=== PATIENT | male | born 1955 | race Hispanic/Latino ===

== ENCOUNTER 2021-06-06 11:12 | Emergency (ER) | payer MEDICARE ==
[2021-06-06] MEDS ORDERED: NALOXONE 0.4 MG/1 ML INJ IV PRN (12:55)
--- NOTE | 2021-06-06 12:57 | Emergency Department Report ---
ED General Adult HPI - General Chief complaint: Altered Mental Status Stated complaint: hes an addict Time Seen by Provider: 06/06/21 12:35 Source: patient, family, EMS ( EMS documentation not available at time of chart dictation ), RN notes reviewed Mode of arrival: Stretcher Limitations: Altered Mental Status - History of Present Illness Initial comments: The patient was evaluated in the emergency department for symptoms described in the history of present illness. He/she was evaluated in the context of the global COVID-19 pandemic, which necessitated consideration that the patient might be at risk for infection with the virus that causes COVID-19. Institutional protocols and algorithms that pertain to the evaluation of patients at risk for COVID-19 are in a state of rapid change based on information released by regulatory bodies including the CDC and federal and state organizations. These policies and algorithms were followed during the patient's care in the emergency department. Please note that these policies, procedures and recommendations changed on a rapid basis. The patient is a 65-year-old gentleman. He is not known to myself previously. He is brought to the hospital by EMS with the family member. History is obtained from the patient's family member. As per the patient's family member, the patient has been affected from his current living facility, and is homeless and probably squatting. He also has a history of "drug abuse", and "basically does everything." Patient is brought to the hospital today by EMS for evaluation for presumed intoxication. The patient himself is sleepy but arousable. He moves 4 extremities. He complains of chronic bilateral knee pain. He makes no complaint of homicidality or suicidality. As per his family member who is at the bedside, they report that the patient had a closed head injury yesterday, but they are not quite sure how. They reports that the patient "does a lot of drugs". Family is interested in detox/rehabilitation for the patient Patient himself is is not making any comments about whether or not he would like to participate in detox or rehab Location: head - Related Data Previous Rx's Medication Instructions Recorded Last Taken Type Naloxone HCl [Narcan Nasal [place]] 4 mg NS PRN PRN #1 spray 06/06/21 Unknown Rx Allergies Allergy/AdvReac Type Severity Reaction Status Date / Time Penicillins Allergy Unknown Verified 06/06/21 11:15 ED Review of Systems ROS: Stated complaint: AMS Other details as noted in HPI Comment: Unobtainable due to pts medical conditions (Review of systems as per family) Constitutional: malaise Neurological: confusion ED Past Medical Hx - Surgical History Additional Surgical History: l) leg surgery/metal kevin - Social History Smoking Status: Current Some Day Smoker Substance Use Type: Alcohol - Medications Home Medications: Home Medications Medication Instructions Recorded Confirmed Last Taken Type Naloxone HCl [Narcan Nasal [place]] 4 mg NS PRN PRN #1 spray 06/06/21 Unknown Rx ED Physical Exam - General Limitations: Altered Mental Status General appearance: appears intoxicated, lethargic - Head Head exam: Present: normocephalic, other (Left supraorbital abrasion) - Eye Eye exam: Present: PERRL, EOMI. Absent: normal appearance (Pupils noted to be 2 mm. React to light.) - ENT ENT exam: Present: normal orophraynx, mucous membranes moist, normal external ear exam (Poor dentition is noted) - Neck Neck exam: Present: normal inspection, full ROM. Absent: tenderness, meningismus - Respiratory Respiratory exam: Present: decreased breath sounds. Absent: respiratory distress, wheezes, rales, rhonchi, stridor - Cardiovascular Cardiovascular Exam: Present: normal rhythm, bradycardia, normal heart sounds. Absent: tachycardia, irregular rhythm, systolic murmur, diastolic murmur, rubs, gallop - GI/Abdominal GI/Abdominal exam: Present: soft. Absent: distended, tenderness, guarding, rebound, rigid, pulsatile mass - Rectal Rectal exam: Present: deferred - Extremities Exam Extremities exam: Present: normal inspection, full ROM, pedal edema (1+ edema in the bilateral lower extremity), other (2+ pulses noted in the bilateral upper and lower extremities. There is no palpable cord. negative Homans sign. Muscular compartments are soft. The pelvis is stable.). Absent: calf tenderness - Back Exam Back exam: Present: normal inspection. Absent: tenderness, CVA tenderness (R), CVA tenderness (L), paraspinal tenderness, vertebral tenderness - Neurological Exam Neurological exam: Present: altered, other (There is no facial droop. 5/5 strength in 4 extremities. Patient is sleepy but arousable) - Psychiatric Psychiatric exam: Present: flat affect - Skin Skin exam: Present: warm, dry, intact, normal color. Absent: rash ED Course Vital Signs 06/06/21 06/06/21 06/06/21 11:13 12:41 12:56 Temperature 98 F Pulse Rate 72 Respiratory 17 Rate Blood Pressure 121/80 128/72 Blood Pressure 109/67 [Left] O2 Sat by Pulse 100 Oximetry 06/06/21 19:36 Temperature 97.9 F Pulse Rate 58 L Respiratory 17 Rate Blood Pressure Blood Pressure 135/82 [Left] O2 Sat by Pulse 97 Oximetry - Reevaluation(s) Reevaluation #1: 06/06/21 13:20 Differential diagnosis, including not limited to: Closed head injury, cervical spine injury, toxic encephalopathy, drug abuse, homelessness Assessment and plan: 65-year-old gentleman, who is afebrile, with reassuring vital signs, who moves 4 extremities spontaneously and is protecting his airway, likely presenting with toxic encephalopathy, likely secondary to polysubstance abuse. He has evidence of closed head injury. He is cooperative at this time. He does not meet criteria for 1013 hold or involuntary confinement at this time. Obtain appropriate laboratory studies, EKG, chest x-ray, urinalysis. As nerayne Gonzales. Reassess pending clinical sobriety. Family at the bedside. They are interested in detox and rehab. Patient will be provided with a list of substance abuse programs, outpatient community behavioral health resources, and homeless shelters. We will reassess after completion of the aforementioned diagnostic studies. 06/06/21 13:21 06/06/21 13:49 Care be transferred to the oncoming ER physician, Dr. German Lopez, to follow-up on labs, CT scan of the brain and cervical spine, and reassess. Anticipate that if diagnostic studies unremarkable, and patient is clinically sober and ambulatory with a steady gait, he may be discharged to follow-up as an outpatient ED Medical Decision Making - Lab Data Result diagrams: 06/06/21 13:15 06/06/21 13:15 Vital Signs 06/06/21 11:13 Temperature 98 F Pulse Rate 72 Respiratory 17 Rate Blood Pressure 109/67 [Left] O2 Sat by Pulse 100 Oximetry Vital Signs 06/06/21 06/06/21 06/06/21 11:13 12:41 12:56 Temperature 98 F Pulse Rate 72 Respiratory 17 Rate Blood Pressure 121/80 128/72 Blood Pressure 109/67 [Left] O2 Sat by Pulse 100 Oximetry 06/06/21 19:36 Temperature 97.9 F Pulse Rate 58 L Respiratory 17 Rate Blood Pressure Blood Pressure 135/82 [Left] O2 Sat by Pulse 97 Oximetry Lab Results 06/06/21 06/06/21 06/06/21 Range/Units 13:15 13:15 13:15 WBC 5.3 (4.5-11.0) K/mm3 RBC 4.68 (3.65-5.03) M/mm3 Hgb 13.9 (11.8-15.2) gm/dl Hct 41.6 (35.5-45.6) % MCV 89 (84-94) fl MCH 30 (28-32) pg MCHC 34 (32-34) % RDW 14.3 (13.2-15.2) % Plt Count 326 (140-440) K/mm3 Lymph % (Auto) 22.6 (13.4-35.0) % Benson % (Auto) 10.0 H (0.0-7.3) % Eos % (Auto) 2.4 (0.0-4.3) % Baso % (Auto) 1.4 (0.0-1.8) % Lymph # (Auto) 1.2 (1.2-5.4) K/mm3 Benson # (Auto) 0.5 (0.0-0.8) K/mm3 Eos # (Auto) 0.1 (0.0-0.4) K/mm3 Baso # (Auto) 0.1 (0.0-0.1) K/mm3 Seg Neutrophils % 63.6 (40.0-70.0) % Seg Neutrophils # 3.4 (1.8-7.7) K/mm3 PT 12.6 (12.2-14.9) Sec. INR 0.85 L (0.87-1.13) Sodium (137-145) mmol/L Potassium (3.6-5.0) mmol/L Chloride (98-107) mmol/L Carbon Dioxide (22-30) mmol/L Anion Gap mmol/L BUN (9-20) mg/dL Creatinine (0.8-1.3) mg/dL Estimated GFR ml/min BUN/Creatinine Ratio % Glucose (75-100) mg/dL Calcium (8.4-10.2) mg/dL Total Bilirubin (0.1-1.2) mg/dL AST (5-40) units/L ALT (7-56) units/L Alkaline Phosphatase (35-129) units/L Total Creatine Kinase 56 (55-170) units/L Total Protein (6.3-8.2) g/dL Albumin (3.9-5) g/dL Albumin/Globulin Ratio % Urine Color (Yellow) Urine Turbidity (Clear) Urine pH (5.0-7.0) Ur Specific [place] (1.003-1.030) Urine Protein (Negative) mg/dL Urine Glucose (UA) (Negative) mg/dL Urine Ketones (Negative) mg/dL Urine Blood (Negative) Urine Nitrite (Negative) Urine Bilirubin (Negative) Urine Urobilinogen (<2.0) mg/dL Ur Leukocyte Esterase (Negative) Urine WBC (Auto) (0.0-6.0) /HPF Urine RBC (Auto) (0.0-6.0) /HPF Urine Mucus /HPF Salicylates (2.8-20.0) mg/dL Urine Opiates Screen Urine Methadone Screen Acetaminophen (10.0-30.0) ug/mL Ur Barbiturates Screen Ur Phencyclidine Scrn Ur Amphetamines Screen U Benzodiazepines Scrn Urine Cocaine Screen U Marijuana (THC) Screen Drugs of Abuse Note Plasma/Serum Alcohol (0-0.07) % 06/06/21 06/06/21 06/06/21 Range/Units 13:15 13:15 13:15 WBC (4.5-11.0) K/mm3 RBC (3.65-5.03) M/mm3 Hgb (11.8-15.2) gm/dl Hct (35.5-45.6) % MCV (84-94) fl MCH (28-32) pg MCHC (32-34) % RDW (13.2-15.2) % Plt Count (140-440) K/mm3 Lymph % (Auto) (13.4-35.0) % Benson % (Auto) (0.0-7.3) % Eos % (Auto) (0.0-4.3) % Baso % (Auto) (0.0-1.8) % Lymph # (Auto) (1.2-5.4) K/mm3 Benson # (Auto) (0.0-0.8) K/mm3 Eos # (Auto) (0.0-0.4) K/mm3 Baso # (Auto) (0.0-0.1) K/mm3 Seg Neutrophils % (40.0-70.0) % Seg Neutrophils # (1.8-7.7) K/mm3 PT (12.2-14.9) Sec. INR (0.87-1.13) Sodium (137-145) mmol/L Potassium (3.6-5.0) mmol/L Chloride (98-107) mmol/L Carbon Dioxide (22-30) mmol/L Anion Gap mmol/L BUN (9-20) mg/dL Creatinine (0.8-1.3) mg/dL Estimated GFR ml/min BUN/Creatinine Ratio % Glucose (75-100) mg/dL Calcium (8.4-10.2) mg/dL Total Bilirubin (0.1-1.2) mg/dL AST (5-40) units/L ALT (7-56) units/L Alkaline Phosphatase (35-129) units/L Total Creatine Kinase (55-170) units/L Total Protein (6.3-8.2) g/dL Albumin (3.9-5) g/dL Albumin/Globulin Ratio % Urine Color (Yellow) Urine Turbidity (Clear) Urine pH (5.0-7.0) Ur Specific [place] (1.003-1.030) Urine Protein (Negative) mg/dL Urine Glucose (UA) (Negative) mg/dL Urine Ketones (Negative) mg/dL Urine Blood (Negative) Urine Nitrite (Negative) Urine Bilirubin (Negative) Urine Urobilinogen (<2.0) mg/dL Ur Leukocyte Esterase (Negative) Urine WBC (Auto) (0.0-6.0) /HPF Urine RBC (Auto) (0.0-6.0) /HPF Urine Mucus /HPF Salicylates < 0.3 L (2.8-20.0) mg/dL Urine Opiates Screen Urine Methadone Screen Acetaminophen 5.0 L (10.0-30.0) ug/mL Ur Barbiturates Screen Ur Phencyclidine Scrn Ur Amphetamines Screen U Benzodiazepines Scrn Urine Cocaine Screen U Marijuana (THC) Screen Drugs of Abuse Note Plasma/Serum Alcohol < 0.01 (0-0.07) % 06/06/21 06/06/21 06/06/21 Range/Units 13:15 Unknown Unknown WBC (4.5-11.0) K/mm3 RBC (3.65-5.03) M/mm3 Hgb (11.8-15.2) gm/dl Hct (35.5-45.6) % MCV (84-94) fl MCH (28-32) pg MCHC (32-34) % RDW (13.2-15.2) % Plt Count (140-440) K/mm3 Lymph % (Auto) (13.4-35.0) % Benson % (Auto) (0.0-7.3) % Eos % (Auto) (0.0-4.3) % Baso % (Auto) (0.0-1.8) % Lymph # (Auto) (1.2-5.4) K/mm3 Benson # (Auto) (0.0-0.8) K/mm3 Eos # (Auto) (0.0-0.4) K/mm3 Baso # (Auto) (0.0-0.1) K/mm3 Seg Neutrophils % (40.0-70.0) % Seg Neutrophils # (1.8-7.7) K/mm3 PT (12.2-14.9) Sec. INR (0.87-1.13) Sodium 142 (137-145) mmol/L Potassium 4.4 (3.6-5.0) mmol/L Chloride 103.3 (98-107) mmol/L Carbon Dioxide 26 (22-30) mmol/L Anion Gap 17 mmol/L BUN 20 (9-20) mg/dL Creatinine 0.9 (0.8-1.3) mg/dL Estimated GFR > 60 ml/min BUN/Creatinine Ratio 22 % Glucose 80 (75-100) mg/dL Calcium 9.3 (8.4-10.2) mg/dL Total Bilirubin 0.30 (0.1-1.2) mg/dL AST 18 (5-40) units/L ALT 16 (7-56) units/L Alkaline Phosphatase 92 (35-129) units/L Total Creatine Kinase (55-170) units/L Total Protein 7.0 (6.3-8.2) g/dL Albumin 4.0 (3.9-5) g/dL Albumin/Globulin Ratio 1.3 % Urine Color Yellow (Yellow) Urine Turbidity Clear (Clear) Urine pH 6.0 (5.0-7.0) Ur Specific [place] 1.010 (1.003-1.030) Urine Protein <15 mg/dl (Negative) mg/dL Urine Glucose (UA) Neg (Negative) mg/dL Urine Ketones Neg (Negative) mg/dL Urine Blood Neg (Negative) Urine Nitrite Neg (Negative) Urine Bilirubin Neg (Negative) Urine Urobilinogen < 2.0 (<2.0) mg/dL Ur Leukocyte Esterase Neg (Negative) Urine WBC (Auto) < 1.0 (0.0-6.0) /HPF Urine RBC (Auto) < 1.0 (0.0-6.0) /HPF Urine Mucus Few /HPF Salicylates (2.8-20.0) mg/dL Urine Opiates Screen Negative Urine Methadone Screen Negative Acetaminophen (10.0-30.0) ug/mL Ur Barbiturates Screen Negative Ur Phencyclidine Scrn Negative Ur Amphetamines Screen Positive U Benzodiazepines Scrn Negative Urine Cocaine Screen Negative U Marijuana (THC) Screen Negative Drugs of Abuse Note Disclamer Plasma/Serum Alcohol (0-0.07) % - EKG Data -: EKG Interpreted by Me EKG shows normal: sinus rhythm Rate: bradycardia - EKG Data 06/06/21 13:22 The EKG is interpreted at 13: 06 Sinus rhythm, bradycardia, rate 59 bpm. Normal axis, normal intervals, normal P wave axis, and motion artifact. Abnormal EKG. Not a STEMI. - Radiology Data Radiology results: pending, report reviewed, image reviewed Critical care attestation.: If time is entered above; I have spent that time in minutes in the direct care of this critically ill patient, excluding procedure time. ED Disposition Clinical Impression: Closed head injury, Polysubstance abuse, DJD (degenerative joint disease) of cervical spine Disposition: 01 HOME / SELF CARE / HOMELESS Is pt being admited?: No Does the pt Need Aspirin: No Condition: Good Additional Instructions: Recommend that patient not drive motor vehicles or operate heavy machinery until cleared to do so by a primary care doctor. We recommend that patient avoid consumption of alcohol, tobacco, smoke products and recreational drugs. Consumption of the aforementioned may cause addiction, disability, , paral ysis, and loss of quality of life. Use the Narcan medication as needed for opioid reversal. Recommend follow-up with a primary care doctor within the next week. Recommend follow-up with a mental health specialist within the next week. Please return to the emergency room right away with new pain, worsened pain, migration of pain, projectile vomiting, change in mental status, confusion, inability tolerate liquid feeds, new, worsened or different symptoms not present on the initial emergency room evaluation Patient will also receive a prescription for Narcan opioid reversal medication, as well as a list of outpatient homeless shelters, substance abuse programs, and mental health resources. In case of an emergency, please contact the following numbers: [place] Crisis and Access Line: Number: Crisis Text Line: (Text START) Number: [phone] Suicide Prevention Line: Number: Emergency Number: 911 SUBSTANCE ABUSE PROGRAMS: [facility]: Location: [place], [place] [employer] Address: [address] [place] [address] [facility]: Address: [address] [place] [address] [facility]: Address: [address] [place] [address] [facility]: Address: [address] [place] [address] [facility] Address: [address] [place] [id number]. Please contact above numbers to attempt placement into free based program. Medicaid Programs: [facility]: Address: [address] [place] [address] [facility]: Address: [address] [place] [id number] Prescriptions: Naloxone HCl [Narcan Nasal [place]] 4 mg NS PRN PRN #1 spray PRN Reason: Opioid Reversal Referrals: [facility] [Provider Group] - 3-5 Days [facility] [Outside] - [facility] Days [facility] - [facility]-5 Days
[2021-06-06 13:35] LABS: Basophils # (Auto) 0.1 K/mm3 (0.0-0.1); Basophils % (Auto) 1.4 % (0.0-1.8); Eosinophils # (Auto) 0.1 K/mm3 (0.0-0.4); Eosinophils % (Auto) 2.4 % (0.0-4.3); Hematocrit 41.6 % (35.5-45.6); Hemoglobin 13.9 gm/dl (11.8-15.2); Lymphocytes # (Auto) 1.2 K/mm3 (1.2-5.4); Lymphocytes % (Auto) 22.6 % (13.4-35.0); Mean Corpuscular HGB Conc 34 % (32-34); Mean Corpuscular Volume 89 fl (84-94); Monocytes # (Auto) 0.5 K/mm3 (0.0-0.8); Platelet Count 326 K/mm3 (140-440); Red Blood Count 4.68 M/mm3 (3.65-5.03); Red Cell Distribution Width 14.3 % (13.2-15.2)
[2021-06-06 13:44] LABS: INR 0.85 (0.87-1.13)
--- NOTE | 2021-06-06 13:57 | XRay Report ---
CHEST 1 VIEW 06/06/2021 1:12 PM INDICATION / CLINICAL INFORMATION: Altered Mental Status. COMPARISON: None available. FINDINGS: SUPPORT DEVICES: None. HEART / MEDIASTINUM: No significant abnormality. LUNGS / PLEURA: No significant pulmonary or pleural abnormality. No pneumothorax. ADDITIONAL FINDINGS: No significant additional findings. IMPRESSION: 1. No acute findings. Signer Name: Vincent Watts MD Signed: 06/06/2021 1:52 PM Workstation Name: [email or web address]
--- NOTE | 2021-06-06 14:46 | Cat Scan Report ---
CT head/brain wo con INDICATION / CLINICAL INFORMATION: 65 years Male; Altered Mental Status. TECHNIQUE: Routine CT head without contrast. All CT scans at this location are performed using CT dos e reduction for ALARA by means of automated exposure control. COMPARISON: None. FINDINGS: BRAIN / INTRACRANIAL CONTENTS: The motion degrades the image quality. There are notable atrophic ruiz ges of the left temporal lobe which may be related to old infarct. There otherwise appear to be mild white matter changes involving remaining cerebrum thickening of the microvascular angiopathy. There i s associated mild ex vacuo dilatation of the left temporal horn. There is otherwise mild atrophy invo lving remaining cerebral with corresponding mild prominence of the ventricular system. There is no clear CT evidence of acute intracranial hemorrhage or significant mass effect. ORBITS: No significant abnormality of visualized orbits. SINUSES / MASTOIDS: There is mild to moderate mucosal thickening within the right maxillary sinus. CRANIOCERVICAL JUNCTION: No significant abnormality. ADDITIONAL FINDINGS: None. IMPRESSION: 1. There are notable atrophic changes or encephalomalacia involving the left temporal lobe as detaile d above. Otherwise, there is no clear CT evidence of acute intracranial process. Signer Name: Gary Jackson MD Signed: 06/06/2021 2:41 PM Workstation Name: [id number]
--- NOTE | 2021-06-06 14:50 | Cat Scan Report ---
CT cervical spine wo con INDICATION / CLINICAL INFORMATION: 65 years Male; closed hea dinjury ams. TECHNIQUE: Axial CT images of the cervical spine were obtained. Sagittal and coronal reformatted images were pr oduced. All CT scans at this location are performed using CT dose reduction for ALARA by means of aut omated exposure control. COMPARISON: None available. FINDINGS: POST-SURGICAL CHANGES: None. ALIGNMENT: There is minimal anterolisthesis at C6-7 which may be on a degenerative basis given the ri ght facet joint changes at. VERTEBRAE: There is marked disc space narrowing with associated endplate changes at C5-6. Milder find ings are noted at C3-4 and C4-5. There is no clear CT evidence of acute fracture of the cervical spin e. INTRAVERTEBRAL DISCS: There is right facet joint hypertrophy at C2-3 with mild right foraminal narrow ing. There is marked left foraminal narrowing at C3-4 with encroachment on the left lateral recess. There is marked foraminal narrowing at C4-5, greater on the right. The spondylosis C5-C6 appears to e fface subarachnoid space. There is marked left and moderate right neural foraminal narrowing. There is moderate to marked foraminal narrowing bilaterally at C6-7. The disc bulge appears to efface the ventral subarachnoid space. There is mild right foraminal narrowing at C7-T1. PARASPINAL SOFT TISSUES: No prevertebral soft tissue fluid collections are identified. ADDITIONAL FINDINGS: None. IMPRESSION: 1. There are multilevel degenerative the changes involving cervical spine as detailed above. 2. There is no clear CT evidence of acute fracture. Signer Name: Gary Jackson MD Signed: 06/06/2021 2:45 PM Workstation Name: [id number]
[2021-06-06 15:12] LABS: Alanine Aminotransferase 16 units/L (7-56); BUN/Creatinine Ratio 22; Blood Urea Nitrogen 20 mg/dL (9-20); Calcium 9.3 mg/dL (8.4-10.2); Hemolysis Index 11
[2021-06-06 17:30] LABS: Bilirubin,Urine NEG (Negative); Blood,Urine NEG (Negative); Color,Urine Yellow (Yellow); Mucus,Urine FEW /HPF; Protein,Urine <15 mg/dL mg/dL (Negative); RBC,Urine < 1.0 /HPF (0.0-6.0); Urobilinogen,Urine < 2.0 mg/dL (<2.0)
[2021-06-06 17:31] LABS: WBC,Urine < 1.0 /HPF (0.0-6.0)
[2021-06-06 17:36] LABS: Benzodiazepines Screen,Urine Negative; Cannabinoid Screen,Urine Negative; Cocaine Screen,Urine Negative; Methadone Screen,Urine Negative; Opiate Screen,Urine Negative
[2021-06-06 17:47] LABS: Amphetamine Screen,Urine Positive
[2021-06-06 19:38] VITALS: BP 135/82
--- NOTE | 2021-06-07 11:47 | Electrocardiograph Report ---
[facility] Test Date: 2021-06-06 Test Time: 13:06:54 Pat Name: GIA HERNÁNDEZ Department: Room: Gender: M Director Of Food And Nutrition Services: : 1955 Requested By: DASHA QUIROZ Order Number: [id number] Reading MD: Aldair Mojica Measurements Intervals [place] Rate: 59 P: 61 WA: 170 QRS: 22 QRSD: 109 T: 46 QT: 421 QTc: 418 Interpretive Statements Sinus bradycardia No previous ECG available for comparison Electronically Signed On 06-07-2021 10:46:10 EST by Aldair Mojica
== END 2021-06-06 19:38 | disposition home or self-care (01) ==
LOC: ED 11:12
DX: S09.90XA Unspecified injury of head, initial encounter (principal); F19.129 Other psychoactive substance abuse with intoxication, unspecified; M47.892 Other spondylosis, cervical region; Z98.890 Other specified postprocedural states; F17.200 Nicotine dependence, unspecified, uncomplicated; Z88.0 Allergy status to penicillin; X58.XXXA Exposure to other specified factors, initial encounter; Y93.89 Activity, other specified; Y92.89 Other specified places as the place of occurrence of the external cause; Y99.8 Other external cause status
CPT/HCPCS: 36415; 70450; 71045; 72125; 80053; 80307; 81001; 82550; 85025; 85610; 93005; 93010; 99285; J2310; 80320; G0480

== ENCOUNTER 2021-06-25 21:50 | Emergency (ER) | payer MEDICARE ==
[2021-06-25 22:15] VITALS: BP 131/81
[2021-06-25 23:34] LABS: BUN/Creatinine Ratio 20; Blood Urea Nitrogen 18 mg/dL (9-20); Calcium 9.2 mg/dL (8.4-10.2); Hemolysis Index 14
[2021-06-25 23:44] LABS: Basophils # (Auto) 0.1 K/mm3 (0.0-0.1); Basophils % (Auto) 1.1 % (0.0-1.8); Eosinophils # (Auto) 0.1 K/mm3 (0.0-0.4); Eosinophils % (Auto) 2.3 % (0.0-4.3); Hematocrit 42.5 % (35.5-45.6); Hemoglobin 13.8 gm/dl (11.8-15.2); Lymphocytes # (Auto) 1.4 K/mm3 (1.2-5.4); Mean Corpuscular HGB Conc 33 % (32-34); Mean Corpuscular Volume 88 fl (84-94); Monocytes # (Auto) 0.4 K/mm3 (0.0-0.8); Monocytes % (Auto) 7.4 % (0.0-7.3); Platelet Count 332 K/mm3 (140-440); Red Blood Count 4.83 M/mm3 (3.65-5.03); Red Cell Distribution Width 14.3 % (13.2-15.2)
[2021-06-26 01:01] LABS: Bilirubin,Urine NEG (Negative); Blood,Urine NEG (Negative); Color,Urine Yellow (Yellow); Mucus,Urine 3+ /HPF; Protein,Urine <15 mg/dL mg/dL (Negative)
[2021-06-26 01:10] LABS: Amphetamine Screen,Urine PRESUMPTIVE POSITIVE; Benzodiazepines Screen,Urine PRESUMPTIVE NEGATIVE; Cannabinoid Screen,Urine PRESUMPTIVE NEGATIVE; Cocaine Screen,Urine PRESUMPTIVE NEGATIVE; Methadone Screen,Urine PRESUMPTIVE NEGATIVE; Opiate Screen,Urine PRESUMPTIVE NEGATIVE
--- NOTE | 2021-06-26 02:10 | Cat Scan Report ---
CT head without contrast INDICATION : ams. TECHNIQUE: Axial imaging performed from the skull apex through the skull base without the use of con trast. All CT scans at this location are performed using CT dose reduction for ALARA by means of aut omated exposure control. COMPARISON: 06/06/2021 FINDINGS: Parenchyma: Diffuse cerebral atrophy and mild chronic small vessel ischemic change. More localized at rophy/encephalomalacia at the left temporal region. No mass, stroke or hemorrhage. Ventricles: Ventricles are normal in size and appear symmetric. Soft tissues: Soft tissues including the orbits appear normal. Bones: No acute osseous abnormality. Sinuses: Sinuses and mastoid air cells are clear. IMPRESSION: 1. 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 2. No acute abnormality. Signer Name: Brian Cortez MD Signed: 06/26/2021 2:06 AM Workstation Name: [id number]
--- NOTE | 2021-06-26 02:17 | Emergency Department Report ---
ED Psych HPI - General Chief Complaint: Psych Stated Complaint: MEDICAL CLEARANCE Time Seen by Provider: 06/25/21 22:56 Source: patient, family Mode of arrival: Ambulatory - History of Present Illness Initial Comments: Pt ex reports she was sent here from [place] for medical clearance. Per ex , pt is showing signs of dementia and is also using meth and "G" x 20 years. Pt is alert to person. NAD noted. MD Complaint: altered mental status -: Gradual, month(s) History of same: Yes Quality: constant Context: recent drug abuse - Related Data Previous Rx's Medication Instructions Recorded Last Taken Type Naloxone HCl [Narcan Nasal [place]] 4 mg NS PRN PRN #1 spray 06/06/21 Unknown Rx Allergies Allergy/AdvReac Type Severity Reaction Status Date / Time Penicillins Allergy Unknown Verified 06/06/21 11:15 ED Review of Systems ROS: Stated complaint: MEDICAL CLEARANCE Other details as noted in HPI Constitutional: denies: chills, fever Eyes: denies: eye pain, eye discharge, vision change ENT: denies: ear pain, throat pain Respiratory: denies: cough, shortness of breath, wheezing Cardiovascular: denies: chest pain, palpitations Endocrine: no symptoms reported Gastrointestinal: denies: abdominal pain, nausea, diarrhea Genitourinary: denies: urgency, dysuria Musculoskeletal: denies: back pain, joint swelling, arthralgia Skin: denies: rash, lesions Neurological: denies: headache, weakness, paresthesias Psychiatric: denies: anxiety, depression Hematological/Lymphatic: denies: easy bleeding, easy bruising ED Past Medical Hx - Past Medical History Previous Medical History?: No Hx Hypertension: No Additional medical history: UTO - Surgical History Past Surgical History?: Yes Additional Surgical History: l) leg surgery/metal kevin - Social History Smoking Status: Current Some Day Smoker Substance Use Type: Alcohol - Medications Home Medications: Home Medications Medication Instructions Recorded Confirmed Last Taken Type Naloxone HCl [Narcan Nasal [place]] 4 mg NS PRN PRN #1 spray 06/06/21 Unknown Rx ED Physical Exam - General Limitations: Other General appearance: alert, in no apparent distress - Head Head exam: Present: atraumatic, normocephalic - Eye Eye exam: Present: normal appearance - ENT ENT exam: Present: mucous membranes moist - Neck Neck exam: Present: normal inspection - Respiratory Respiratory exam: Present: normal lung sounds bilaterally. Absent: respiratory distress - Cardiovascular Cardiovascular Exam: Present: regular rate, normal rhythm. Absent: systolic murmur, diastolic murmur, rubs, gallop - GI/Abdominal GI/Abdominal exam: Present: soft, normal bowel sounds - Rectal Rectal exam: Present: deferred - Extremities Exam Extremities exam: Present: normal inspection - Back Exam Back exam: Present: normal inspection - Neurological Exam Neurological exam: Present: alert, oriented X3 - Psychiatric Psychiatric exam: Present: normal affect, normal mood - Skin Skin exam: Present: warm, dry, intact, normal color. Absent: rash ED Course Vital Signs 06/25/21 22:11 Temperature 97.9 F Pulse Rate 69 Respiratory 16 Rate Blood Pressure 131/81 [Right] O2 Sat by Pulse 98 Oximetry ED Medical Decision Making - Lab Data Result diagrams: 06/25/21 23:02 06/25/21 23:02 Critical care attestation.: If time is entered above; I have spent that time in minutes in the direct care of this critically ill patient, excluding procedure time. ED Disposition Clinical Impression: Medical clearance for psychiatric admission Disposition: 01 HOME / SELF CARE / HOMELESS Is pt being admited?: No Does the pt Need Aspirin: No Condition: Stable Referrals: RENE ARCHIBALD MD [Primary Care Provider] - 3-5 Days
== END 2021-06-26 02:20 | disposition home or self-care (01) ==
LOC: ED 21:50
DX: Z13.30 Encounter for screening examination for mental health and behavioral disorders, unspecified (principal); F17.200 Nicotine dependence, unspecified, uncomplicated; F10.20 Alcohol dependence, uncomplicated
CPT/HCPCS: 36415; 70450; 80048; 80307; 80320; 81001; 85025; 99284; G0480